=== PATIENT | female | born 1940 | race Caucasian/White ===

== ENCOUNTER 2018-07-26 23:02 | Inpatient (IN) | payer MEDICARE, OTHER ==
[~2018-07-26] VITALS: Ht 167.6 cm; Wt 61.1 kg
[~2018-07-26 23:02] MED LIST: ALOE VERA25 MG PO; ASPIR-LOW81 MG PO; ASPIRIN325 MG PO; ATIVAN1 MG PO; CALCITONIN-SAL3.7 ML NAS; CALCIUM 600 +1 EACH PO; CO Q-10100 MG PO; CURCUMIN1 GM MC; DAILY VALUE1 EACH PO; DEXAMETHASONE4 MG PO; DILTIAZEM ER240 M1 PO; FLAX OIL1000 MG PO; FOLIC ACID0.4 MG PO; GABAPENTIN100 MG PO; GARLIC1 EACH PO; GINKGO BILOBA60 M1 PO; GLYCERIN1 EAC1 PR; GREEN TEA-70500 MG PO; KEFLEX500 MG PO; LEVOTHYROXINE100 MCG PO; LEVOTHYROXINE88 MCG PO; LORAZEPAM1 MG PO; MELATONIN3 MG PO; MSM500 MG PO; MULTI VITAMIN1 EACH PO; NETTLE LEAF10000 GM; NORCO 7.5-3251 EACH PO; ONDANSETRON ODT8 MG PO; OXECTA7.5 MG PO; OXYCODONE HCL5 MG PO; PAPAYA PO; PREDNISONE20 MG PO; SELENIUM50 MCG PO; SENNA S TABLET1 EA PO; SENNA-DOCUSATE1 EAC1 PO; SENNA8.6 MG PO; THROAT DROPS2.8 MG MM; TURMERIC500 M1 PO; TYLENOL325 M1 PO; VITAMIN B-1250 MCG PO; VITAMIN B-625 MG PO; VITAMIN D31000 UNIT PO; VITAMIN K240 MCG PO; ZESTRIL10 MG PO; ZOFRAN ODT4 MG PO; [UNRECOGNIZED DRUG - OTHER] MC
--- NOTE | 2018-07-27 02:42 | NUR ---
PATIENTS ADMISSION COMPLETED. ASSESMENT COMPLETED. PATIENT ARRIVED VIA STRETCHER. PATIENT MOVED BY STAFF FROM STRETCHER TO BED. PATIENT WAS PAINFUL W/MOVEMENT. PATIENT RATES PAIN AT A 4/10 BUT STATES THATS AN EXCEPTABLE LEVEL. PATIENT DENIES THE NEED FOR PAIN MEDICATION AT THIS TIME. PATIENT IS ON RA. PATIENT OREINTED TO UNIT, CALL LIGHT, AND FLOOR. PATIENT VERBALIZES UNDERSTANDING. PATIENT IS DROWSY BUT EASY TO AWAKEN. PATIENT IS AAOX3. HOSKINS IN PLACE. CALL LIGHT IN REACH. NO NEEDS NOTED.
--- NOTE | 2018-07-27 03:03 | NUR ---
IV INFUSING. PATIENT GIVEN PRN PAIN MEDICATION PER ORDER. PATIENT RATES PAIN IN HER LEFT HIP AT 5/10. PATIENT EDUCATED ON NPO. PATIENT VERBALIZES UNDERSTANDING. PATIENT DENIES ANY NEEDS. CALL EMILIE PARIKH.
--- NOTE | 2018-07-27 04:36 | NUR ---
PATIENT RESTED WELL SINCE ARRIVING TO THE FLOOR. PATIENT IS ON BED REST AT THIS TIME. IV INFUSING. NPO. PRN PAIN MEDICATION X1. HOSKINS IN PLACE. CALL LIGHT IN REACH. BED ALARM ON FOR SAFETY.
--- NOTE | 2018-07-27 06:15 | NUR ---
RECEIVED ORDER FROM DR ABDI. VERBAL ORDER RECEIVED FOR BUCKS TRACTION. BUCKS TRACTION APPLIED PER ORDER. ORDER VERIFIED USING THE READBACK METHOD. BUCKS TRACTION W/5LBS FOR Q 30MIN, THEN ADD AN ADDITIONAL 5LBS FOR A TOTAL OF 10LBS. PATIENT GIVEN PRN PAIN MEDICATION AND BUYCKS TRACTION APPLIED PER VERBAL ORDER. ORDER RECEIVED TO PLACE A HOSPITALIST CONSULT. ORDER VERIFIED USING THE READBACK METHOD. PATIENTS VITALS TAKEN AND RECORDED. CALL LIGHT IN REACH. PATIENT IS AAOX3. DROWSY BUT EASY TO AWAKEN.
--- NOTE | 2018-07-27 06:47 | NUR ---
ADDITIONAL 5LB WEIGHT ADDED TO BUCKS TRACTION. PATIENT TOLERATED ACTIVITY WELL. PATIENT IS TOLERATING BUCKS TRACTION WELL. PATIENT DENIES ANY NEEDS. CALL LIGHT IN REACH.
--- NOTE | 2018-07-27 07:30 | NUR ---
PT APPEARS TO BE SLEEPING, EYES CLOSED, RESPERATIONS EVEN AND UNLABORED. NO FACIAL GRIMACING AT THIS TIME.
--- NOTE | 2018-07-27 07:38 | NUR ---
NOTIFIED DR HOLLINS OF MEDICAL CONSULT.
--- NOTE | 2018-07-27 08:15 | NUR ---
PT APPEARS DROWSY, BUT RESPONDS TO QUESTIONS.PT DENIES ANY PAIN AT THIS TIME.
--- NOTE | 2018-07-27 08:30 | NUR ---
PT I OFF MED- [facility], TRANSFERED TO DAY SURGERY FOR SURGERY ON L) HIP.
--- NOTE | 2018-07-27 12:25 | NUR ---
PT BACK TO HER ROOM ON MED[facility] BY SN AND RN.
--- NOTE | 2018-07-27 12:30 | NUR ---
PT APPEARS DRWOSY, AROUSES TO VERBAL STIMULI. SMALL AMOUNT OF RED DRAINAGE AT L) HIP SURGICAL SITE.V/S WNL. PER THE SN AND RN SCD'S AND NIC ELDRIDGE APPLIED. PT DENIES ANY PAIN AT THIS TIME. FALL PRECATIONS IN PLACE.
--- NOTE | 2018-07-27 12:32 | NUR ---
PT BACK TO FLOOR VIA STRETCHER WITH TACHO GILMORE. PT DROWSY BUT AROUSABLE. DENIES PAIN. ON RA. PULSE OX APPLIED. VS STABLE. SCDS, CRYO IN PLACE. SMALL AMT OF RED DRAINAGE NOTED ON AKSHAT DRESSING. IVF RESUMED PER ORDERS. PT STATES SHE IS COLD WILL APPLY MORE WARM BLANKETS.
--- NOTE | 2018-07-27 12:34 | NUR ---
07/27/18 1234 Hetal Edwards 1131 PT ARRIVED IN PACU SLEEPY. RESPONDS TO TACTILE STIMULI AND FALLS BACK TO SLEEP. BILAT NIC HOES AND CRYO CUFF TO L HIP PLACED. PT ABLE TO MOVE FEET, BUT UNABLE TO VERBALIZE WHERE SPINAL LEVEL IS. 1140 PT SHIVERING. JACINTO HUGGER PLACED. 1200 OXYGEN REMOVED. SATS 93-97% ON RA. 1206 TORADOL 15MG GIVEN IVP PER DR ORDERS. NO C/O'S PAIN. 1220 TO MED SURG ROOM 120. REPORT GIVEN TO LEANDRO Arroyo RN.
--- NOTE | 2018-07-27 13:00 | NUR ---
DURING ASSESSMENT PT IS ABLE TO ANSERW QUESTIONS AND RESPONDS APPROPRIATELY. PT IS RESTING AND STATES, "SHE IS COMFORTABLE".
--- NOTE | 2018-07-27 14:00 | NUR ---
PT IS AWAKE VISTING WITH FRIENDS, IS AT BEDSIDE.
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
--- NOTE | 2018-07-27 14:18 | NUR ---
RECEIVED BEDSIDE REPORT FROM TACHO REEVES. AKSHAT DRESSING INTACT, SOME DRAINAGE NOTED ON UPPER PORTION OF DRESSING. AT BEDSIDE. REPORTED "TWINGES OF PAIN" BUT REFUSED MEDICATION AT THIS TIME. CRYCUFF TO LEFT HIP. NIC ELDRIDGE, SCDS, AND HEEL PROTECTORS ON. IV INFUSING. NO REQUESTS AT THIS TIME.
[2018-07-27] MEDS ORDERED: XGEVA120 MG/1.7 SUB-Q (15:44)
--- NOTE | 2018-07-27 15:44 | NUR ---
ASSESSMENT DONE. pt DENIES PAIN WHEN RESTING "ONLY A LITTLE WHEN MOVING". SCDS, NIC HOSE, AND HEEL PROTECTORS ON. CRYOCUFF ON. AKSHAT FLASHING OKAY. NO NEW DRAINAGE NOTED. C/D/I OTHERWISE. AT BEDSIDE. CALL LIGHT WITHIN REACH.
[2018-07-27] MEDS ORDERED: CARBOPLATIN150 MG IV (15:45)
[2018-07-27] MEDS ORDERED: AVASTIN25 MG/1 ML IV (15:47)
--- NOTE | 2018-07-27 17:23 | NUR ---
MEDICATION DUE. GIVEN (SEE MAR). DENIES PAIN. NEW ICE IN CRYOCUFF. PUDDING PROVIDED. DENIES NAUSEA. NO FURTHER REQUESTS AT THIS TIME. CALL LIGHT WITHIN REACH.
--- NOTE | 2018-07-27 18:26 | NUR ---
LOW URINE OUTPUT. CHARGE NURSE AWARE. BLADDER SCAN DONE. DR HOLLINS AWARE WHO PUT IN ORDERS FOR LR BOLUS. STARTED (SEE MAR). FAMILY AT BED SIDE. pt RESTING IN BED.
--- NOTE | 2018-07-27 18:30 | NUR ---
PATIENT SITING UP IN BED TAKING DINNER. FAMILY IN ROOM. VITAL SIGNS AND I&O DONE. CALL LIGHT WITHIN REACH. NO OTHER NEEDS AT THIS TIME.
--- NOTE | 2018-07-27 18:31 | NUR ---
pt DENIED PAIN AND NAUSEA. TOLERATING ADVANCED DIET. HOSKINS CATHETER, LOW URINE OUTPUT, DR HOLLINS AWARE BOLUS STARTED. AKSHAT DRESSING ON LEFT HIP, NO NEW SHADOWING OTHERWISE C/D/I, LIGHT BLINKING OKAY. CRYOCUFF ON. NIC ELDRIDGE, THELMAS, HEEL PROTECTORS ON. USES CALL LIGHT APPROPRIATELY.
--- NOTE | 2018-07-27 20:00 | NUR ---
PATIENT RESTING QUIETLY IN BED WATCHING TV AT THIS TIME. NO CURRENT NEEDS OR COMPLAINTS OF PAIN, CALL LIGHT IN REACH.
--- NOTE | 2018-07-27 20:04 | NUR ---
ROUNDED CHARGE. PATIENT IS RESTING IN BED. PATIENT GIVEN PRN PAIN MEDICATION PER ORDER AND PATIENT REQUEST. PATIENT RATES PAIN AT A 4/10 IN HER LEFT HIP. PATIENT IS AAOX3. PATIENT DENIES ANY FURTHER NEEDS AT THIS TIME. IV BOLUS INFUSING PER MD ORDER. CALL LIGHT IN REACH.
--- NOTE | 2018-07-27 22:00 | NUR ---
PATIENT ASSESSMENT DONE. PATIENT STARTED TO HAVE 10/10 LEG PAIN JUST BEFORE 2100, BUT AFTER LEG CREAM WAS APPLIED AND NEURONTIN AND TYLENOL GIVEN PATIENT IS NOT HAVING ANY PAIN AT THIS TIME AND IS RESTING QUIETLY, EYES CLOSED RESPIRATIONS EVEN.
--- NOTE | 2018-07-27 22:30 | NUR ---
Called WITH PATIENT'S URINE OUTPUT OF 110MLS OVER THE LAST 4 HOURS WHICH IS 12 MLS SHORT OF 2ML/KG/HR. ORDERED ANOTHER 500ML LR IV BOLUS TO RUN OVER 1 HOUR AND TO MONITOR URINE OUTPUT EVERY 4HRS. THE ORDER WAS READ BACK AND THE BOLUS WAS STARTED.
--- NOTE | 2018-07-28 00:35 | NUR ---
PATIENT HAS BEEN RESTING QUIETLY. PATIENT DENIES PAIN AT THIS TIME AND HAS NO CURRENT NEEDS. 15 MG IV SCHEDULED TORADOL GIVEN. PATIENT HAS BEEN RESTING QUIETLY. VS HAVE BEEN STABLE.
--- NOTE | 2018-07-28 00:55 | EKG ---
[facility] [address] [facility] [place] [address] Signed Normal sinus rhythm Normal ECG When compared with ECG of 06-SEP-2016 11:40, premature supraventricular complexes are no longer present Confirmed by TERRANCE HOLLINS MD ([id number]) on 07/28/2018 12:54:45 AM Electronically Signed By: TERRANCE HOLLINS MD 07/28/18 0055 PATIENT NAME: TELMA MARIANO Electrocardiogram DATE OF : 36 PHYSICIAN: TERRANCE HOLLINS MD REPORT #: [id number] REPORT IS CONFIDENTIAL AND NOT TO BE RELEASED WITHOUT AUTHORIZATION
--- NOTE | 2018-07-28 02:33 | NUR ---
PATIENT STILL DENIES PAIN, REPOSITIONED IN BED, URINE OUTPUT QS FOR THE LAST 4 HOURS. CRYO REFILLED WITH ICE. TEDS, SCD'S, AND HEEL PROTECTORS ON. WARM BLANKETS APPLIED. CALL LIGHT IN REACH, VS DONE. PATIENT HAS NO OTHER NEEDS AT THIS TIME.
--- NOTE | 2018-07-28 04:30 | NUR ---
PATIENT RESTING QUIETLY, EYES CLOSED, RESPIRATIONS EVEN AND REGULAR, SATS 97% AND HR=85 ON SAT MONITOR.
--- NOTE | 2018-07-28 06:23 | NUR ---
PATIENT HAS RESTED WELL MOST OF THE NIGHT. PATIENT HAD SOME PAIN AT THE BEGINING OF THE SHIFT THAT WAS RELIEVED WITH ONE NORCO. SCHEDULED TORADOL HAS BEEN GIVEN THROUGH THE NIGHT AND PATIENT HAS BEEN REPOSITIONED. URINE OUTPUT WAS NOT QS THE FIRST 4 HOURS OF THE SHIFT, BUT WITH LR BOLUSES ORDERED BY DR. HOLLINS THE SECONDTWO 4HR SEGMENTS OF THE SHIFT PATIENT WAS QUANTITY SUFFICIENT. SMALL AMOUNT OF RED DRY DRAINAGE ON THE LEFT HIP DRESSING WHICH HAS NOT CHANGED SINCE THE BEGINING OF THE SHIFT. TEDS, SCD'S, AND HEEL PROTECTORS IN PLACE AND CRYO CUFF IN PLACE WELL.
--- NOTE | 2018-07-28 06:57 | NUR ---
CALLED WITH CONCERNS OF PATIENT'S SYSTOLIC BLOOD PRESSURE BEING CONSISTENTLY IN THE 150-170'S AND THAT SHE NORMALLY TAKES DILTIAZEM 240MG PO QD AT HOME. HE SAID HE WILL TAKE A LOOK AT IT. ALSO INFORMED HIM THE PATIENT'S URINE OUTPUT HAD BECOME QUANTITY SUFFICIENT WITH THE FLUID BOLUSES. NO NEW ORDERS.
--- NOTE | 2018-07-28 07:35 | OR ---
[facility] [address] [place], [place] [address] Signed DATE OF OPERATION: 07/27/2018 SURGEON: Trace Vogel MD PREOPERATIVE DIAGNOSIS: Left subtrochanteric femur fracture. POSTOPERATIVE DIAGNOSIS: Left subtrochanteric femur fracture. PROCEDURE PERFORMED: Open reduction and internal fixation of left femur. DELIVERY ASSOCIATE: Annie Landon PA-C. Annie was present for critical positioning, fracture reduction, and wound closure. ANESTHESIA: Spinal. BLOOD LOSS: 250 mL. IMPLANTS: Synthes TFN 12 x 230 with a 110 lag screw and a 40 mm distal screw. BRIEF HISTORY: Beena is a 77-year-old female with multiple medical issues who suffered a ground level fall last night fracturing her femur. She was taken to the ER. Radiograph showed a displaced angulated subtroch femur fracture. Risks and benefits of operative treatment discussed with her and her and they elected to proceed. DESCRIPTION OF PROCEDURE: Once consent was obtained, she was taken to the operating room. After adequate anesthesia, placed on the trauma table. The right leg was flexed, abducted, external rotated on a well-padded leg pappas. The left was placed in well-padded foot traction and was reduced. The hip was then prepped and draped in the standard sterile fashion. The first incision was 4 inches long, centered over the fracture distally and taken through skin and subcutaneous tissue. IT band was divided longitudinally as was the vastus lateralis. The fracture was then manipulated until it was reduced or very close Electronically Signed By: TRACE VOGEL MD 07/28/18 0735 PATIENT NAME: BEENA MARIANO OPERATIVE REPORT DATE OF : 36 REPORT #: [id number] PHYSICIAN: TRACE VOGEL MD PCP: ZO HANNON MD REPORT IS CONFIDENTIAL AND NOT TO BE RELEASED WITHOUT AUTHORIZATION [facility] [address] [place], [place] [address] Signed to reduction. This was then clamped. The reduction took quite a while to get it to a semi-reduced position. The proximal approach was made through a 2-inch incision, carried through skin and subcutaneous tissue, and again IT band was divided. Blunt dissection was taken down to the tip of the trochanter and a guidewire was used to enter the tip of the trochanter and advanced down the femur. This was followed by the curved awl and sequentially reamed up to 14. Once this was completed, the 12 x 230 was placed over the guidewire and advanced until it was well-seated. The guide for the lag screw was then assembled and the guide pin was advanced from the lateral femur through the femoral neck into the center-center position on the head. This was measured to 110. This was checked using biplanar fluoroscopy and found to be adequately placed. The guide pin was overdrilled and the 110 lag screw was then placed until it was well seated. The proximal locking screw was then engaged and a distal interlocking screw was placed. Once this was completed, all jigs were removed. Final radiographs showed good reduction and placement of hardware. Wounds were copiously irrigated with antibiotic solution, closed with #1 Vicryl for the IT band. A 2-0 Vicryl for subcutaneous tissue and neyda for the skin. Wound was dressed with a AKSHAT wound VAC dressing and taken to recovery room in satisfactory condition. All sponge, needle, and instrument counts were correct. Trace Vogel MD BA/SHELLY /[id number] Copies: ~ Electronically Signed By: TRACE VOGEL MD 07/28/18 0735 PATIENT NAME: BEENA MARIANO OPERATIVE REPORT DATE OF : 36 REPORT #: [id number] PHYSICIAN: TRACE VOGEL MD PCP: ZO HANNON MD REPORT IS CONFIDENTIAL AND NOT TO BE RELEASED WITHOUT AUTHORIZATION
--- NOTE | 2018-07-28 07:47 | NUR ---
REPORT RECEIVED FROM CECY TITUS, PATIENT RESTING IN BED WITH NIC HOSE, CRYO CUFF, AND SCD'S ON. DRESSING TO LEFT HIP IS INTACT WITH SOME RED DRAINAGE PRESENT AND GREEN LIGHT IS FLASHING. PATIENT STATES PAIN IS TOLERABLE AT THIS TIME. BED IS IN LOW POSITION WITH RAILS UP AND CALL LIGHT WITHIN REACH. DOCTOR ABDI IN THE ROOM DISCUSSING GIVING BLOOD PRODUCTS WITH THE PATIENT AT THIS TIME.
--- NOTE | 2018-07-28 07:55 | NUR ---
PATIENT'S PAIN CURRENTLY AT A 0/10, BREAKFAST SET UP FOR HER AT THIS TIME AND AM MEDICATION GIVEN TO HER.
--- NOTE | 2018-07-28 09:23 | NUR ---
PATIENT ASSISTED UP TO THE CHAIR WITH PHYSICAL THERAPY. SHE DENIES ANY PAIN OR NEEDS AT THIS TIME. PATIENT TOLERATED TX TO THE CHAIR WELL. CMS TO LEFT LEG CDI.
--- NOTE | 2018-07-28 09:40 | NUR ---
PASTOR THOMAS IN SPEAKING WITH THE PATIENT AT THIS TIME
--- NOTE | 2018-07-28 10:39 | NUR ---
FIRST UNIT OF PRBC STARTED AT THIS TIME. PATIENT TEACHING DONE RE: S/S OF POSSIBLE REACTION SYMPTOMS AND WHAT TO WATCH FOR.
--- NOTE | 2018-07-28 10:50 | NUR ---
PATIENT HAS NO CURRENT S/S OF REACTION FROM THE BLOOD AT THIS TIME, VITALS TAKEN AND WITHIN NORMAL PARAMATERS AT THIS TIME. CALL LIGHT WITHIN REACH AND PATIENT TOLERATING SITTING UP IN THE CHAIR WELL.
--- NOTE | 2018-07-28 11:36 | NUR ---
TALKED WITH PT REGARDING HER DC PLAN, EXPLAINED THAT DR ABDI WOULD LIKE HER TO GO TO A SNF FOR HER EXTENDED NEED FOR REHAB, PT THEN STATED WELL I WILL GO TO [facility] THEN. TALKED WITH THE SALOONKEEPER AND SHE SAID TO FAX NOTES ETC. FAXED CHART NOTES INCLUDING FACESHEET, ER NOTES AND SUMMARY, H AND P, OP NOTES, PROG NOTES, PT EVAL AND NOTES TO [facility].
--- NOTE | 2018-07-28 11:39 | NUR ---
PATIENT REMAINS UP IN THE CHAIR, TOLERATING BEING UP WELL WITHOUT ANY PAIN STILL, SCHEDULED TORADOL GIVEN IV NOW AND SHE STILL HAS NO S/S OF REACTION FROM BLOOD TRANSFUSION.
--- NOTE | 2018-07-28 12:00 | NUR ---
RECIEVED FAX CONFIRMATION OF NOTES SENT TO [facility].
--- NOTE | 2018-07-28 13:00 | NUR ---
PT SITTNG UP IN CHAIR-SEEMS TO BE DOING WELL. WARM AT THIS TIME, BUT GETS EASILY CHILLED. PT REQUESTED I CONTACT PT'S SON IN [place], [place] AND LET HIM KNOW SHE IS HERE, WHICH I DID. PLEASANT VISIT, WILL FOLLOW NEEDED
--- NOTE | 2018-07-28 13:11 | NUR ---
1255 1ST UNIT OF PRBC COMPLETED, PATIENT HAS NO S/S OF TRANSFUSION REACTION STILL AT THIS TIME. BP VITALS CHANGED DURING TX AND SHOWEN TO DOCTOR GUNJAN WHO WAS OK WITH THEM AT THIS TIME.
--- NOTE | 2018-07-28 13:30 | NUR ---
15 MINUTE VITALS FOR SECOND UNIT OF PRBC COMPLETED AT THIS TIME, PATIENT STILL IS WITHOUT ANY S/S OF TRANSFUSION REACTION AT THIS TIME. SHE HAS NO C/O PAIN AND DRESSING TO THE LEFT HIP REMAIN DRY WITH OLD DRAINAGE PRESENT
--- NOTE | 2018-07-28 16:10 | NUR ---
PATIENT IN CHAIR RECIEVING BLOOD. WATER REFRESHED. CALL LIGHT IN REACH. NO FURTHER NEEDS AT THIS TIME.
--- NOTE | 2018-07-28 17:50 | NUR ---
THIS RN ASSUMING CARE OF PT. REPORT RECIEVED FROM FCO TITUS. THIS RN TO ROOM. PT IN BED READING MAGAZINE. PT DENIES PAIN AND NASUEA. BLOOD PRESSURE NOTED TO BE ELEVATED, NOTIFIED, ORDERS TO GIVEN 2000 DOSE OF DILTIAZEM EARLY. SEE MAR FOR MEDICATIONS GIVEN. ASSESSMENT DONE. AKSHAT DRESSING SHOWS MODERATE DRAINAGE, GREEN LIGHT FLASHING ON CANISTER, NO DRAINAGE NOTED IN CANISTER. CMS INTACT. PT WEAK BUT DEINIES NUMBNESS AND TINGLING. CONTINIOUS PULSE OX READS 97% ON ROOM AIR. CRYO CUFF, SCD'S, AND HEEL PROTECTORS IN PLACE. PT REPOSITIONED IN BED. LIGHTS DIMMED SO PT CAN REST. BED RAILS UP. WARM BLANKETS PROVDIED. CALL LIGHT WITHIN REACH.
--- NOTE | 2018-07-28 18:41 | NUR ---
PUMP ALARMING, FLUIDS COMPLETE. NEW FLUID BAG HUNG. PT VISITING WITH WITH GRANDDAUGHTER AND GREAT GRAND CHILDREN. PT CONTINUES CONTINUES TO DENY PAIN AND NAUSEA. BED RAILS UP. CALL LIGHT WITHIN REACH.
--- NOTE | 2018-07-28 19:00 | NUR ---
PT POD1 FOR LEFT FRACTURE HIP PINNING. 2PA WITH FWW, 25% WEIGHT BEARING. PT UP TO CHAIR TODAY. PHYSIAL THERAPY INVOLVED. PT DENIES PAIN THIS EVENING. HOSKINS CATHETER IN PLACE, QUANTITY SUFFICIENT. 2 UNITS OF PBRC'S GIVEN TODAY. AKSHAT DRESSING SHOWS MODERATE DRAINAGE, GREEN LIGHT FLASHING, NO DRAINAGE IN CANISTER. HEEL PROTECTORS, CRYO CUFF, SCD'S AND NIC HOSE IN PLACE. PT HAD EPISODE OF ELEVATED BLOOD PRESSURE THIS PM. 1999 BP MEDICATION GIVEN EARLY PER MD ORDER. PT USES CALL LIGHT INCONSISTANTLY.
--- NOTE | 2018-07-28 19:35 | NUR ---
SHIFT REPORT RECEIVED FROM TRACY HECK. PT A/O X3, IN BED. CYROCUFF IN PLACE. AKSHAT DRESSING IN PLACE, GREEN OKAY LIGHT FLASHING. MILD SANGUINEOUS SHADOWING NOTED, WILL CONTINUE TO MONITOR.
--- NOTE | 2018-07-28 20:15 | NUR ---
CHARGE NURSE ROUNDING NOTE: AWAKE, VISITING WITH FAMILY, NO C/O PAIN, NO REQUESTS, CALL LIGHT AND FLUDS AT BEDSIDE
--- NOTE | 2018-07-28 20:24 | NUR ---
ASSESSMENT COMPLETE. PT A/O X3. PT RATES PAIN 1-2/10, BUT DENIES NEED FOR PAIN MEDICATION AT THIS TIME. AKSHAT DRESSING TO LEFT HIP IN PLACE, GREEN OKAY LIGHT FLASHING. MILD SANGUINEOUS SHADOWING NOTED, APPEARS OLD IN NATURE, WILL CONTINUE TO MONITOR. BILATERAL STRONG PEDAL PULSES NOTED, CMS INTACT PER PT. CYROCUFF IN PLACE. BILATERAL TEDHOSE, SCD'S, AND HEEL PROTECTORS ON. CALL LIGHT IN REACH. IV FLUIDS INFUSING PER MD ORDERS, SITE WNL.
--- NOTE | 2018-07-28 22:00 | NUR ---
DID I&OS AND CHARTED. FILLED CRYO CUFF WITH FRESH ICE. FRESH WATER GIVEN. BEDSIDE TABLE AND CALL LIGHT IN REACH.
--- NOTE | 2018-07-28 22:40 | NUR ---
PT SALINE LOCKED AT THIS TIME. IV FLUIDS DISCONTINUED. CALL LIGHT IN REACH, NO FURTHER NEEDS.
--- NOTE | 2018-07-29 00:28 | NUR ---
scheduled toradol administered. iv site wnl and patent. pt denies pain. cyro cuff in place, no new shadowing or drainage noted, will continue to monitor. bilateral scd's and elio hose in place. heel protectors also on.
--- NOTE | 2018-07-29 02:12 | NUR ---
SCHEDULED CARDIZEM ADMINISTERED. MORNING ASSESSMENT COMPLETE. PT A/OX3 DENIES PAIN. AKSHAT DRESSING INTACT, GREEN OKAY LIGHT FLASHING. NO NEW SHADOWING OR DRAINAGE NOTED. CYROCUFF IN PLACE WITH BILATERAL SCD'S, TEDHOSE, AND HEEL PROTECTORS. CALL LIGHT IN REACH.
--- NOTE | 2018-07-29 06:18 | NUR ---
VITALS AND I&OS DONE AND CHARTED. FRESH WATER GIVEN. FRESH ICE PUT IN CRYO. BEDSIDE TABLE AND CALL LIGHT IN REACH.
--- NOTE | 2018-07-29 06:55 | NUR ---
NOTIFIED BY GAS ENGINE OPERATOR COMPRESSORS OCTOBER OF MONITOR BP RESULT OF 188/94, HR 78. MANULA BP RESULT OF 186/82, HR 76. DR HOLLINS AWARE OF BOTH MONITOR AND MANUAL BP AND HR. NEW ORDERS TO DISCONTINUE CURRENT CARDIZEM 60 MG PO Q6H DOSE, THIS RN DISCONTINUED CURRENT CARDIZEM DOSE. NEW ORDERS TELEPHONE ORDER READ BACK FOR CARDIZEM 90MG PO Q6H STARTING NOW, DR HOLLINS WILL PUT IN NEW ORDERS OF CARDIZEM.NO ADDITIONAL ORDERS. CALL LIGHT IN REACH.
--- NOTE | 2018-07-29 06:55 | NUR ---
PT A/OX3, VERBALIZED VERY LITTLE PAIN WITH MOVEMENT, WELL CONTROLLED WITH SCHEDULED PAIN MEDICATION. AKSHAT DRESSING INTACT, GREEN OKAY LIGHT FLASHING. NO NEW DRAINAGE OR SHADOWING NOTED THIS SHIFT. BILATERAL SCD'S, NIC HOSE, AND HEEL PROTCTORS IN PLACE. CYROCUFF ALSO IN PLACE. BP ELEVATED, CARDIZEM DOSE INCREASED. HOSKINS CATHETER IN PLACE, VOIDING QS YELLOW URINE. PT USES CALL LIGHT APPROPERIATELY.
--- NOTE | 2018-07-29 07:14 | NUR ---
new dose of cardiazem given at this time, patient awake alert and oriented, has no c/o pain at this time. bed in the low position and rails up with call light within reach.
--- NOTE | 2018-07-29 07:57 | NUR ---
DOCTOR JIN IN TO SEE THE PATIENT AT THIS TIME, PATIENT DRESSING TO LEFT HIP CDI AND GREEN LIGHT IS FLASHING. PATIENT STILL DENIES PAIN CURRENTLY.
--- NOTE | 2018-07-29 08:30 | NUR ---
PATIENT SITING UP IN CHAIR. PATIENT TAKING BREAKFAST. LINENS CHANGED. CALL LIGHT WITHIN REACH. NO OTHER NEEDS AT THIS TIME
--- NOTE | 2018-07-29 10:02 | NUR ---
PATIENT SITING UP IN CHAIR. VITAL SIGNS AND I&O DONE. WATER GIVEN. CALL LIGHT WITHIN REACH. NO OTHER NEEDS AT THIS TIME
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
--- NOTE | 2018-07-29 12:44 | NUR ---
PT IN EATING LUNCH WITH MARIA D. SAID SON FROM [place] IS TALKING ABOUT COMING. WANTED PARENTS TO GIVE HIM AN OUT BECAUSE [place] [facility] [place] ENCOURAGED THEM TO HAVE HIM COME-THEY NEED HIM. WILLL FOLLOW NEEDED
--- NOTE | 2018-07-29 13:00 | NUR ---
RECEIVED REPORT AT 1300 FOR THIS PT. PT AT THIS TIME IS UP IN CHAIR.
--- NOTE | 2018-07-29 15:00 | NUR ---
PT IS BACK IN BED. PT DENIES PAIN AT THIS TIME.
--- NOTE | 2018-07-29 16:49 | NUR ---
PATIENT RESTING IN BED. BEDBATH DONE. CATHETER CARE DONE. GOWN CHANGED. CALL LIGHT WITHIN REACH. WATER GIVEN. NO OTHER NEEDS AT THIS TIME
--- NOTE | 2018-07-29 17:31 | NUR ---
TOOK OVER CARE AT 1300. PT SINCE HAS DENIED PAIN AND HAD NO OTHER NEEDS OR CONCERNS SO FAR. ALL LOBES ARE CLEAR. LEFT LEG HAS SOME NON-PITTING EDEMA PRSENT, PEDIS PULSES ARE +2, DRESSING IS DRY AND INTACT WITH SOME SHADOWING PRESENT. V/S ARE WDL OVERALL.
--- NOTE | 2018-07-29 18:25 | NUR ---
PATIENT RESTING IN BED. VITAL SIGNS AND I&O DONE. CALL LIGHT WITHIN REACH. WATER GIVEN. NO OTHER NEEDS AT THIS TIME
--- NOTE | 2018-07-29 19:20 | NUR ---
SHIFT REPORT RECEIVED FROM DAYSPRFT TACHO MORRIS AT BEDSIDE. PT RESTING IN BED, RR EVEN AND UNLABORED. EYES CLOSED, CALL LIGHT IN REACH.
--- NOTE | 2018-07-29 20:20 | NUR ---
ASSESSMENT COMPLETE. PT A/OX3, DENIES PAIN AT THIS TIME. VSS, BP ELEVATED AT 185/82, HR 84. SCHEDULED CARDIZEM GIVEN BY DENTAL ASSISTANT TEACHERTACHO AYALA. WILL CONTINUE TO MONITOR. PT DENIES HEADACHE. AKSHAT DRESSING IN PLACE, GREEN OKAY LIGHT FLASHING. SHADOWING NOTED FROM PREVIOUS SHIFT, NO NEW DRAINAGE OR SHADOWING NOTED. BILATERAL SCD'D, NIC HOSE, HEEL PROTECTORS AND CYRO CUFF IN PLACE. PT DENIES NEEDS, CALL LIGHT IN REACH. DIE REPAIR MACHINIST OCTOBER IN ROOM TO COMPLETE I&O'S.
--- NOTE | 2018-07-29 20:41 | NUR ---
ADMINISTERED INCREASED DOSE OF CARDIZEM ER AT THE REQUEST OF PRIMARY RN. PT'S BP REMAINS IN THE 180'S SYSTOLIC.
--- NOTE | 2018-07-29 21:27 | NUR ---
I&OS DONE AND CHARTED.
--- NOTE | 2018-07-30 00:03 | NUR ---
PT RESTING IN BED, RR EVEN AND UNLABORED. PT DENIES NEEDS AT THIS TIME. CALL LIGHT IN REACH.
--- NOTE | 2018-07-30 02:17 | NUR ---
PT RESTING IN BED. EYES CLOSED, RR EVEN AND UNLABORED. NO DISTRESS NOTED. AUDIBLE SNORING NOTED. CALL LIGHT IN REACH.
--- NOTE | 2018-07-30 03:45 | NUR ---
ASSESSMENT COMPLETE. BP RESULT OF 175/75, MAP 96, HR 71 ON RIGHT ARM. BP RESULT OF 154/69, MAP 91, HR 71 ON LEFT ARM. MANUAL BP RESULT ON LEFT ARM OF 176/72, HR 70. WILL CONTINUE TO MONITOR. PT DENIES SIGNS OF HEADACHE, DIZZINESS. PT VERBALIZES DISCOMFORT AT INCISION SITE EARLIER IN THE NIGHT. THIS RN TO ASSESS. NO NEW DRAINAGE OR SHADOWING NOTED. AKSHAT DRESSING IN PLACE, GREEN OKAY LIGHT FLASHING. BILATERAL NIC HOSE, SCD'S, HEEL PROTECTORS, AND CYROCUFF IN PLACE. CALL LIGHT IN REACH.
--- NOTE | 2018-07-30 05:23 | NUR ---
PT HAD A RAMON, SLEPT ON AND OFF THROUGHOUT THE SHIFT, DENIED PAIN ALL SHIFT. AKSHAT DRESSING IN PLACE, NO NEW SHADOWING OR DRAINAGE NOTED, GREEN OKAY LIGHT FLASHING. PT A/OX3, FOLLOWS COMMANDS APPROPERIATELY. PT ON VEGAN DIET, TOLERATING WELL. BOWEL TONES ACTIVE, PT HAS NOT HAD BM SINCE SURGERY. VSS, ELEVATED SYSTOLIC BP 170'S. PT 2PA W/ AMBULATION. HOSKINS CATHETER IN PLACE, DRAINING QS UO.
--- NOTE | 2018-07-30 05:41 | NUR ---
VITALS AND I&OS DONE AND CHARTED. FRESH ICE PUT INTO CRYO. FRESH WATER IN HER CUP. BED TABLE AND CALL LIGHT IN REACH. PT NEEDS NOTHING MORE AT THIS TIME.
--- NOTE | 2018-07-30 06:08 | NUR ---
scheduled thyroid medication administered. no further needs, call light in reach.
--- NOTE | 2018-07-30 06:50 | NUR ---
PT'S IV CATHETER LEAKING. DR HURTADO CALLED REGARDING MD'S PREFERENCE TO PLACE NEW IV CATHETER OR LEAVE PT WITHOUT IV ACCESS. DR HURTADO NOTIFIED AND INSTRUCTED THIS RN TO ASK DR ABDI ON THE SUBJECT.
--- NOTE | 2018-07-30 07:00 | NUR ---
dayshift talia david aware of pt's leaking iv site. dayshift battery charger genna also aware. instructed by battery charger to wait to call dr mendez regarding pt's lack of iv access as pt is planned to be discharged today.
--- NOTE | 2018-07-30 08:00 | NUR ---
RECEIVED REPORT AT 0700, TOOK PT BREAKFAST ORDER, PT DENIED PAIN AND HAD NO OTHER NEEDS OR CONCERNS AT THAT TIME.
--- NOTE | 2018-07-30 09:01 | NUR ---
assisted nurse in administering a suppository.
[2018-07-30] MEDS ORDERED: HYDROCODON-ACE1 EA11 PO (09:05)
--- NOTE | 2018-07-30 10:00 | NUR ---
HOSKINS HAS BEEN D/C PER MD ABDI, LEAKING IV HAS BEEN D/C PER MD ABDI. A SUPPOSITORY WAS GIVEN SINCE PT HAS NOT HAD A BM SINCE ADMISSION PER MD ABDI. PT DENIES PAIN OVERALL, LEFT LEG EDEMA IS STILL PRESENT, PICCO DRESSING IN INTACT WITH SOME SHADOWING, PUMP IS WORKING. STRENGTH IN LEGS HAS IMPROVED SINCE YESTERDAY. PEDIS PULSES +2, ALL LOBES ARE CLEAR, V/S ARE WDL, NO NEW CONCERNS ARE NOTED SO FAR. PT WILL D/C TO [facility] AFTER BM.
--- NOTE | 2018-07-30 11:28 | NUR ---
PT SO FAR ONLY HAD A VERY SMALL AND HARD BM. SMALL FLEET ENEMA WAS GIVEN.
--- NOTE | 2018-07-30 11:41 | DS ---
[facility] [address], [place] [address] Signed ADMISSION DATE: 07/27/2018 DISCHARGE DATE: 07/30/2018 ADMISSION DIAGNOSIS: Left subtrochanteric femur fracture. DISCHARGE DIAGNOSIS: Postoperative anemia. PROCEDURES PERFORMED: 1. Open reduction and internal fixation, left hip. 2. Transfusion of 2 units PRBCs. BRIEF HISTORY: Beena is a 77-year-old female with an extensive history of metastatic cancer. She suffered a ground level fall and fractured her femur in the subtrochanteric region. She was transported by EMS to the emergency department and admitted by Service. She was initially placed in traction after medical clearance and was taken to the operating room on day zero and underwent open reduction and internal fixation of the left femur. She tolerated this quite nicely. Postoperatively, she was much more awake than she was preoperatively. She had good pain relief with [place] 7.5 and Tylenol. She was seen by Physical Therapy and was very difficult to get to ambulate, transfer, or move herself to the chair. She was felt to be a good candidate for continued inpatient rehab due to being 25% weightbearing on that extremity. She was kept on DVT prophylaxis of SCDs, TEDs, and Xarelto 10 mg p.o. daily. She was a little bit constipated on postoperative day #3 and this was resolved with usual bowel care. She will be discharged to a nursing home facility and 25% weightbearing on left lower extremity. They are to change her AKSHAT dressing to a Mepilex dressing on Wednesday. She will follow up with me in 7 to 10 days. She will be continued on her Xarelto at 10 mg p.o. daily for 30 days. She will follow up with me sooner should she have any issues. Trace Vogel MD BA/MODL /[id number] Electronically Signed By: TRACE VOGEL MD 07/30/18 1141 PATIENT NAME: MARIANOBEENA PANIAGUA DISCHARGE SUMMARY DATE OF : 36 REPORT #: [id number] PHYSICIAN: TRACE VOGEL MD PCP: ZO HANNON MD REPORT IS CONFIDENTIAL AND NOT TO BE RELEASED WITHOUT AUTHORIZATION [address] [address] Signed Copies: ~ Electronically Signed By: TRACE VOGEL MD 07/30/18 1141 PATIENT NAME: BEENA MARIANO DISCHARGE SUMMARY DATE OF : 36 REPORT #: [id number] PHYSICIAN: TRACE VOGEL MD PCP: ZO HANNON MD REPORT IS CONFIDENTIAL AND NOT TO BE RELEASED WITHOUT AUTHORIZATION
--- NOTE | 2018-07-30 12:30 | NUR ---
WAITING ON VAN FROM [facility]. PT IS READY TO GO. REPORT WAS GIVEN TO SHADI TITUS. SHE IS AWARE OF PT NEEDING TO VOID AND NEEDING A BM. SHE IS ALSO AWARE OF THE DRESSING CHANGE INSTRUCTIONS GIVEN BY MD ABDI FOR THE REMOVAL OF THE PICCO DRESSING ON WEDNESDAY.
== END 2018-07-30 12:57 | DRG 481 ==
LOC: ED 23:02 → MS 07-27 01:50
PROVIDERS: ADMIT Specialist
PROC: 3E0T3BZ Introduction of Anesthetic Agent into Peripheral Nerves and Plexi, Percutaneous Approach (ICD-10-PCS; 2018-07-27)
PROC: 3E0T33Z Introduction of Anti-inflammatory into Peripheral Nerves and Plexi, Percutaneous Approach (ICD-10-PCS; 2018-07-27)
PROC: 0QS704Z Reposition Left Upper Femur with Internal Fixation Device, Open Approach (ICD-10-PCS; principal; 2018-07-27 10:00)
DX: S72.22XA Displaced subtrochanteric fracture of left femur, initial encounter for closed fracture (principal); D62 Acute posthemorrhagic anemia; C56.9 Malignant neoplasm of unspecified ovary; C78.00 Secondary malignant neoplasm of unspecified lung; C78.7 Secondary malignant neoplasm of liver and intrahepatic bile duct; C79.51 Secondary malignant neoplasm of bone; G89.18 Other acute postprocedural pain; R34 Anuria and oliguria; E03.9 Hypothyroidism, unspecified; I10 Essential (primary) hypertension; I25.10 Atherosclerotic heart disease of native coronary artery without angina pectoris; W18.30XA Fall on same level, unspecified, initial encounter; Z88.2 Allergy status to sulfonamides; Z88.1 Allergy status to other antibiotic agents; Z79.891 Long term (current) use of opiate analgesic; Z79.52 Long term (current) use of systemic steroids; Z79.899 Other long term (current) drug therapy
CPT/HCPCS: 01210; 36415; 36430; 51702; 64447; 71045; 73502; 76942; 80048; 80053; 81001; 85025; 85610; 85730; 86850; 86900; 86901; 86920; 93005; 93010; 96374; 96375; 97110; 97116; 97163; 97166; 97530; 99285-25; C1713; J0690; J1100; J1170; J1885; J2250; J2405; J2704; J2795; J7042; J7120; P9016

== ENCOUNTER 2018-08-27 13:40 | Emergency (ER) | payer MEDICARE, OTHER ==
[~2018-08-27] VITALS: Ht 167.6 cm; Wt 68.0 kg
[~2018-08-27 13:40] MED LIST changes: +AVASTIN25 MG/1 ML IV; +CARBOPLATIN150 MG IV; +HYDROCODON-ACE1 EA11 PO; +XGEVA120 MG/1.7 SUB-Q
== END 2018-08-27 19:53 ==
LOC: ED 13:40
DX: R60.1 Generalized edema (principal); D72.829 Elevated white blood cell count, unspecified; I87.8 Other specified disorders of veins; Z85.118 Personal history of other malignant neoplasm of bronchus and lung; Z85.41 Personal history of malignant neoplasm of cervix uteri; Z88.2 Allergy status to sulfonamides; Z88.1 Allergy status to other antibiotic agents; Z79.899 Other long term (current) drug therapy
CPT/HCPCS: 71045; 74177; 80053; 81001; 83880; 85025; 85610; 87040; 93970; 99284-25; Q9967

== ENCOUNTER 2018-08-29 19:09 | Observation (INO) | payer MEDICARE, OTHER ==
[~2018-08-29] VITALS: Ht 167.6 cm; Wt 75.5 kg
--- OUTSIDE RECORDS SUMMARY | 2018-08-29 19:12 | XMS ---
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 Paty has no Care Guidelines for this patient. Corinna VISIT COUNT (12 MO.) [address] [facility] TOTAL 3 NOTE: Visits indicate total known visits. ED/C VISIT TRACKING (12 MO.) 08/29/2018 19:09 [facility] [place] TYPE: Emergency COMPLAINT: - CHEST PAIN 08/27/2018 13:42 [facility] TYPE: Emergency COMPLAINT: - HEALTH ISSUES 07/26/2018 23:02 [facility] TYPE: Emergency COMPLAINT: - FALL INPATIENT VISIT TRACKING (12 MO.) 07/27/2018 01:50 [facility] TYPE: Medical Surgical COMPLAINT: - ACUTE L HIP FX DIAGNOSES: - Secondary malignant neoplasm of unspecified lung - Essential (primary) hypertension - watermelon inspector (current) use of opiate analgesic - Other tank terminal gauger (current) drug therapy - Displaced subtrochanteric fracture of left femur, initial encounter for closed fracture - Secondary malignant neoplasm of liver and intrahepatic bile duct - Malignant neoplasm of unspecified ovary - Acute posthemorrhagic anemia - watermelon inspector (current) use of systemic steroids - Hypothyroidism, unspecified - Secondary malignant neoplasm of bone - Other acute postprocedural pain - Other senior living (current) drug therapy - Other acute postprocedural pain - Allergy status to sulfonamides status - Anuria and oliguria - Secondary malignant neoplasm of bone - Allergy status to other antibiotic agents status - Malignant neoplasm of unspecified ovary - Essential (primary) hypertension - Acute posthemorrhagic anemia - Fall on same level, unspecified, initial encounter - Hypothyroidism, unspecified - MCC (current) use of systemic steroids - Atherosclerotic heart disease of [place] coronary artery without angina pectoris - Secondary malignant neoplasm of unspecified lung - watermelon inspector (current) use of opiate analgesic - Atherosclerotic heart disease of [place] coronary artery without angina pectoris - Secondary malignant neoplasm of liver and intrahepatic bile duct - Fall on same level, unspecified, initial encounter - Allergy status to sulfonamides status - Anuria and oliguria - Allergy status to other antibiotic agents status [email or web address]
[2018-08-29] MEDS ORDERED: ASPIR-TRIN325 MG PO (19:19)
[2018-08-29] MEDS ORDERED: CURCUMIN1 GM MISC (19:21)
[2018-08-29] MEDS ORDERED: DEMADEX20 MG PO ×2 (19:23→19:24)
[2018-08-29] MEDS ORDERED: DULCOLAX10 MG PR (19:25)
[2018-08-29] MEDS ORDERED: FLONASE ALLERG9.9 ML NAS (19:26)
[2018-08-29] MEDS ORDERED: NITROSTAT0.4 MG SL (19:26)
[2018-08-29] MEDS ORDERED: POLYOX WSR-3011 GM MISC (19:27)
[2018-08-29] MEDS ORDERED: K-TAB ER20 MEQ PO (19:28)
[2018-08-29] MEDS ORDERED: PROTONIX40 M1 PO (19:28)
[2018-08-29] MEDS ORDERED: XARELTO10 MG PO (19:30)
[2018-08-29] MEDS ORDERED: LASIX20 MG PO (19:31)
[2018-08-29] MEDS ORDERED: MILK OF MA400 MG/5 M PO (19:51)
[2018-08-29] MEDS ORDERED: TORSEMIDE20 MG PO (20:16)
--- NOTE | 2018-08-30 00:10 | NUR ---
ADMIT TO CCU PER STRETCHER. IS ALERT AND ORIENTED AND GOOD HISTORIAN. HAS DRSG IN PLACE TO L HIP. HAD HIP REPAIR IN JULY FOR FX HIP. WAS INFORMED DRSG WAS CHANGED TODAY AT [facility] WHERE PT HAS BEEN RECIEVING REHAB. HAS LARGE BRUISE L POST BUTTOCKS AND DISCOLORING DOWN L LEG. ALSO HAS DARK BLUE BRUISE R LOWER LEG/R ANKLE AREA. ATTENDS REMOVED, 16F HOSKINS CATH INSERTED WITHOUT PROBLEM, RETURN YELLOW URINE. PT ARRIVED TO UNIT IN [facility]. ORAL CARDIZEM GIVEN ON ARRIVAL.WILL HOLD CARDIZEM INFUSION FOR NOW. WITH PT AND HE STATED HE WAS TOLD THAT PT'S CONDITION WAS DUE TO HER CANCER AND ASKED REPEATEDLY IF THIS WAS SO. DID AFIRM THAT PT'S OVERALL WEAKNESS WAS PROBABLY DUE TO CANCER AND THAT THE DYSRYTHMIA COULD BE. DID LEAVE TO GO HOME AFTER REASURANCE.
--- NOTE | 2018-08-30 02:45 | NUR ---
SLEEPING OFF AND OF. NO C/O. HR 77-80 REMAINS SR.
--- NOTE | 2018-08-30 05:40 | NUR ---
HAS SLEPT OFF AND ON. DENIES PAIN. HR HAS REMAINED SR RATE 70'S. TALKED ABOUT BREAKFAST, GIVEN ENSURE AND A MUFFIN.
--- NOTE | 2018-08-30 07:30 | NUR ---
REPORT RECIEVED. PATIENT IS LAYING IN BED, RESTFUL. TALKED WITH PATIENT ABOUT PLAN OF CARE, IS UNDERSTANDING.
--- NOTE | 2018-08-30 07:42 | EKG ---
[facility] [address] [place] [address] Signed Sinus tachycardia with occasional premature ventricular complexes Left axis deviation Incomplete right bundle branch block Abnormal ECG When compared with ECG of 27-JUL-2018 01:37, premature ventricular complexes are now present Confirmed by SUNDAY HURTADO MD ([id number]) on 08/30/2018 7:42:37 AM Electronically Signed By: SUNDAY HURTADO MD 08/30/18 0742 PATIENT NAME: MARIANOTELMA Electrocardiogram DATE OF : 36 PHYSICIAN: SUNDAY HURTADO MD REPORT #: [id number] REPORT IS CONFIDENTIAL AND NOT TO BE RELEASED WITHOUT AUTHORIZATION
--- NOTE | 2018-08-30 07:43 | EKG ---
[facility] [address] [facility] [place] [address] Signed Atrial fibrillation with rapid ventricular response with premature ventricular or aberrantly conducted complexes Left axis deviation Incomplete right bundle branch block Nonspecific ST abnormality Abnormal ECG When compared with ECG of 29-AUG-2018 19:16, (Unconfirmed) Atrial fibrillation has replaced Sinus rhythm Confirmed by SUNDAY HURTADO MD ([id number]) on 08/30/2018 7:42:59 AM Electronically Signed By: SUNDAY HURTADO MD 08/30/18 0743 PATIENT NAME: CEDRIC MARIANOSHARIF GRIFFIN Electrocardiogram DATE OF : 36 PHYSICIAN: SUNDAY HURTADO MD REPORT #: [id number] REPORT IS CONFIDENTIAL AND NOT TO BE RELEASED WITHOUT AUTHORIZATION
--- NOTE | 2018-08-30 08:00 | NUR ---
ASSESSMENT DONE, IS TAKING ENSURE FOR BREAKFAST. DR. HURTADO HERE TO SEE PATIENT, SHE EXPLANIED PLAN OF CARE FOR DAY WITH PATIENT.
--- NOTE | 2018-08-30 10:00 | NUR ---
C/O BILAT ANKLE PAIN, NORCO GIVEN FOR PAIN. IS AT BEDISDE.
--- NOTE | 2018-08-30 11:35 | NUR ---
SPONGE BATH GIVEN.
--- NOTE | 2018-08-30 11:58 | NUR ---
PT ambulated to commodoe with considereable difficulty. Generalized weakness. 2 Staff comlete dependent assist to commode
--- NOTE | 2018-08-30 12:05 | NUR ---
PT RESTING IN BED-ALERT AND MARIA D AT BS. MOST COMPLIANT PT EVER-SELDOM IF EVER WILL COMPLAIN- THE SAME. PT HAVING A DIFFICULT DAY, PRAYED WITH BOTH, WILL CONTINUE TO FOLLOW NEEDED
--- NOTE | 2018-08-30 13:41 | NUR ---
PT repostioned in chair with feet slightly elevated and chair back leaned backwards. PT States she is comfortable no additional needs at this time.
--- NOTE | 2018-08-30 14:00 | NUR ---
REMAINS IN CHAIR. DENIES PAIN. HAS BEEN TAKING ENSURE AT MEALS AND SIPPING ON WATER.
--- NOTE | 2018-08-30 15:08 | NUR ---
REMAINS IN CHAIR, RESTFUL. MONITOR SHOWS SR.
--- NOTE | 2018-08-30 15:20 | NUR ---
BACK TO BED WITH ASSIST.
--- NOTE | 2018-08-30 15:30 | NUR ---
ASSESSMENT DONE. NO CHANGES.
--- NOTE | 2018-08-30 17:16 | NUR ---
NAPPING NO DISTESS NOTED.
--- NOTE | 2018-08-30 18:00 | NUR ---
TOOK DINNER WELL. DENIES PAIN. RESTFUL AT THIS TIME.
--- NOTE | 2018-08-30 22:34 | NUR ---
SLEEPING. HR 60'S.
--- NOTE | 2018-08-31 00:01 | NUR ---
CONT TO SLEEP. NO CHANGE.
--- NOTE | 2018-08-31 01:16 | NUR ---
AWAKENS EASILY, NO C/O. DECLINES TO REPOSITION. HR 49-55, SINUS WILLY.
--- NOTE | 2018-08-31 03:00 | NUR ---
CONT TO SLEEP. REMAINS SINUS WILLY HR 50'S.
--- NOTE | 2018-08-31 05:24 | NUR ---
IN TO ASSESS PT, AWAKE AND C/O BACK PAIN 02/25 REPOSITIONED AND GIVEN 1 NORCO PO. PT THEN STATED NEED TO GET UP TO BSC TO HAVE BM.
--- NOTE | 2018-08-31 05:43 | NUR ---
ASSISTED TO BSC. PT HAD DIFFICULTY STANDING, LEGS WEAK, FINALLY UP TO COMMODE WITH 2 PERSONASSIST. WAS INC OF STOOL. TO CHAIR AFTERWARDS.
--- NOTE | 2018-08-31 06:29 | NUR ---
DOZING IN CHAIR.
--- NOTE | 2018-08-31 08:49 | NUR ---
AM PO medications adminsisterd. PT tolerated well PO meds take indepedently. PT comfortable no additional needs at this time.
[2018-08-31] MEDS ORDERED: METOPROLOL SUCC25 MG PO (09:53)
--- NOTE | 2018-08-31 10:29 | NUR ---
RECIEVED PHONE CALL FROM [facility] THAT THEY WOULD BE ABLE TO LAUNDRY ROUTEMAN PT BETWEEN 1030 AND 1100, DR HURTADO INFORMED AND SHE WAS WORKING OF DC PACKET ALREADY. I INFORMED Maty BRYANT RN, TALKED WITH PT ABOUT RETURNING. COPIED CHART TO GO WITH PT TO [facility]. INCLUDED UPDATED POLST FORM. COPIES MADE FOR PT CHART HERE AT HOSPITAL. FAXED DC ORDERS AND RX TO [facility], RECIEVED FAX CONFIRMATION. CALLED AND SPOKE WITH PT MARIA D TO INFORM HIM THAT PT WAS GOING BACK TO [facility] TODAY. HE SAID THEN SHE MUST BE DOING BETTER. I STATED THAT SHE IS READY TO RETURN THERE FOR CONTINUED CARE.
--- NOTE | 2018-08-31 10:36 | NUR ---
TALKED WITH BENITA AT [facility] TO INFORM HER THAT ORDERS WERE FAXED TO HER.
== END 2018-08-31 11:05 ==
LOC: ED 19:09 → CCU 19:10 → ED 19:10 → CCU 08-31 11:05
PROVIDERS: ADMIT Internal Medicine
DX: I48.1 Persistent atrial fibrillation (principal); I10 Essential (primary) hypertension; Q60.0 Renal agenesis, unilateral; C54.1 Malignant neoplasm of endometrium; C79.9 Secondary malignant neoplasm of unspecified site; I89.0 Lymphedema, not elsewhere classified; Z66 Do not resuscitate; R91.8 Other nonspecific abnormal finding of lung field; S72.22XD Displaced subtrochanteric fracture of left femur, subsequent encounter for closed fracture with routine healing; W18.30XD Fall on same level, unspecified, subsequent encounter; Z85.41 Personal history of malignant neoplasm of cervix uteri; Z85.118 Personal history of other malignant neoplasm of bronchus and lung; Z79.01 Long term (current) use of anticoagulants; Z79.82 Long term (current) use of aspirin; Z79.891 Long term (current) use of opiate analgesic; Z79.51 Long term (current) use of inhaled steroids; Z79.52 Long term (current) use of systemic steroids; Z79.899 Other long term (current) drug therapy; Z88.1 Allergy status to other antibiotic agents; Z88.2 Allergy status to sulfonamides
CPT/HCPCS: 36415; 51702; 71045; 71260; 80048; 80053; 80162; 83735; 84484; 85025; 93005; 93010; 96374; 96375; 96376; 97163; 97166; 99285-25; G0378; Q9967